=== PATIENT | female | born 1950 | race African-American/Black ===

== ENCOUNTER 2019-07-26 12:05 | Emergency (ER) | payer MEDICARE, OTHER ==
[~2019-07-26] VITALS: Ht 160 cm; Wt 90.0 kg
--- OUTSIDE RECORDS SUMMARY | 2019-07-26 12:07 | XMS REPORT | Summary of Care ---
Author Author LINA Rivas, EMILY Organization Unknown Address Unknown Phone Unavailable Care Team Providers Care [employer] Baseball Player Name Role Phone EMILY MILLS M.D. Unavailable Unavailable KEIRY SANTIAGO MD Unavailable Unavailable Unavailable Unavailable Functional Status Name Dates Details Functional status health issues are not documented Status: Name Dates Details Cognitive status health issues are not documented Status: Problems Name Dates Details Constipation (564.00, K59.00) Status: Active Nausea (787.02, R11.0) Status: Active Stress (V62.89, F43.9) Status: Active Medications Name Dates Details Tresiba SOLN Active Lantus 100 UNIT/ML Subcutaneous Solution INJECT 86 UNIT * Refills: 0 * Start : 01-Jun-2019 Active 10 ML Vial Probiotic Daily CAPS * Refills: 0 Active Horizant 300 MG Oral Tablet Extended Release TAKE 1 TABLET TWICE DAILY * Refills: 0 * Start : 01-Jun-2019 Active Linzess 290 MCG Oral Capsule TAKE 1 CAPSULE DAILY * Quantity: 90 Refills: 1 EMILY MILLS M.D. * Start : 01-Jun-2019 Active Allergies and Adverse Reactions Name Dates Details Codeine Derivatives (Allergy) Status: Active morphine (Allergy) Status: Active Procedures Procedure Dates Details [QLH] TSH, 3RD GENERATION W/REFLEX TO FT4 Date: 01-Jun-2019 [QLH] HEMOGLOBIN A1c Date: 01-Jun-2019 [H] Iron, TIBC \T\ Ferritin Date: 01-Jun-2019 [QLH] VITAMIN B12 Date: 01-Jun-2019 [QLH] VITAMIN D, 1,25 DIHYDROXY LC/MS/MS Date: 01-Jun-2019 [QLH] CBC (INCLUDES DIFF/PLT) Date: 01-Jun-2019 [QLH] CMP W/EGFR Date: 01-Jun-2019 Immunization Name Dates Details Immunizations not documented Social History Name Dates Details Unknown if ever smoked Vital Signs Date Test Result Details 01-Jun-20199:22 BP Systolic 181 mm[Hg] Status: Comments: Location: RUE; Position: Sitting BP Diastolic 51 mm[Hg] Status: Comments: Location: RUE; Position: Sitting Height 63 in Status: Body Mass Index Calculated 34.81 kg/m2 Status: Body Surface Area Calculated 1.92 m2 Status: Weight 196.5 lb Status: Temperature 97.8 f Status: Comments: Method: Oral Heart Rate 75 /min Status: Comments: Location: R Brachial Artery; Quality: Normal Results Date Description Value Details Results not documented Plan of Care Name Dates Details Planned Observations Planned Goals not documented Planned Encounters Psychology Referral Appointment; MORENA SARAVIA, PHD On: 16-Jul-2019 10:30 Interventions Provided Medication Changes* Linzess 290 MCG Oral Capsule - Start Labs/Procedures/Imaging* [H] Iron, TIBC \T\ Ferritin; To Be Done: 01 Jun 2019 * [QLH] CBC (INCLUDES DIFF/PLT); To Be Done: 01 Jun 2019 * [QLH] CMP W/EGFR; To Be Done: 01 Jun 2019 * [QL[facility]] HEMOGLOBIN A1c; To Be Done: 01 Jun 2019 * [QLH] TSH, 3RD GENERATION W/REFLEX TO FT4; To Be Done: 01 Jun 2019 * [QLH] VITAMIN B12; To Be Done: 01 Jun 2019 * [QLH] VITAMIN D, 1,25 DIHYDROXY LC/MS/MS; To Be Done: 01 Jun 2019 Plan* Plan 1. Chronic constipation * - contributing to her gas/bloat and nausea * - start Linzess 290 mcg po q daily * - exercise as tolerated, 20 min brisk walking per day recommended * - adequate hydration -- continue (states to drink at least 8 large glasses of water per day) * 2. Gastroparesis * - causing nausea, gas/bloat * - small frequent meals, low fat, every 2-3 hours * - gastroparesis handout given * - diabetes control essential * - hx of multiple surgeries also contributing to gastroparesis * - labs today including a1c, tsh, cbc, cmp, iron profile, vit D * - stressors contributing to symptoms, referral to psychology * - she may be a candidate for bariatric surgery given long hx of symptomatic gastroparesis, obesity, and complications related to obesity/DM -- I will consider discussing this with her at future visits * 3. Obtain outside Gi records, last colonoscopy? She believes she is up to date on colorectal cancer screening * 4. Reason for pancras surgery unclear -- obtain outside records * 5. rtc in 6-8 weeks * 6. GERD - continue dexilant daily Instructions Name Dates Details Instructions not documented Encounters Appointment; EMILY MILLS M.D. Encounter Diagnosis: Problem not documented On: 01-Jun-2019 9:20
--- OUTSIDE RECORDS SUMMARY | 2019-07-26 12:07 | XMS REPORT ---
Author [facility] Address Unknown Phone Unavailable Care Team Providers Care Extractor Machine Operator Name Role Phone JJ MENDEZ Unavailable Unavailable Problems This patient has no known problems. Allergies, Adverse Reactions, Alerts This patient has no known allergies or adverse reactions. Medications This patient has no known medications. Results Test Description Test Time Test Comments Text Results Atomic Results Result Comments SCR MAMM BILATERAL CAD DIGITAL 2018-08-02 11:52:05 - SCR MAMM BILATERAL CAD DIGITALBILATERAL DIGITAL SCREENING MAMMOGRAM WITH CAD: 08/02/2018CLINICAL: Asymptomatic. Current mammographic images were evaluated by either a [employer] M- Vu or a [employer] ImageChecker CAD (computer aided detection system). Comparison is made to exams dated 05/04/2017 mammogram, 11/26/2014 mammogram, and 01/29/2011 mammogram - [facility]. The tissue of both breasts is predominantly fatty. Status post bilateral reduction mammoplasty with postoperative changes. No suspicious mass, architectural distortion, malignant type calcification, or lymph node abnormality detected. Breast architecture is stable compared to prior exams.IMPRESSION: BENIGNThere is no mammographic evidence of malignancy. Resume annual screening mammography in one year. Noe Hooks M.D. ss/:08/02/2018 11:52:05 Locker Plant Attendant: Vivian WILLIAM, Ma[facility]-FWletter sent: BIRADS 1-2 Normal Mammogram BI-RADS: 2 Benign POCT-GLUCOSE METER 2018-03-09 16:33:00 POC-GLUCOSE METER (Viveve) (test imzl=7401) 136 mg/dL 70-110 TESTED AT [address] [address] POCT-GLUCOSE [id number] 11:22:00* Test Item Value Reference Range Comments POC-GLUCOSE METER (BETracelytics) (test yoix=6832) 349 mg/dL 70-110 TESTED AT [address] [place] [address] (MANUAL DIFFERENTIAL)2018-03-09 06:37:00* Test Item Value Reference Range Comments NEUTROPHILS - REL (DIFF) (BEAKER) (test laoz=5966) 58 % LYMPHOCYTES - REL (DIFF) (BEAKER) (test mjiz=7564) 17 % MONOCYTES - REL (DIFF) (BEAKER) (test fahw=7956) 6 % EOSINOPHILS - REL (DIFF) (BEAKER) (test zmiq=7680) 18 % BASOPHILS - REL (DIFF) (BEAKER) (test tzrm=5062) 1 % NEUTROPHILS - ABS (DIFF) (BEAKER) (test fehp=6077) 4.41 K/ L 1.80-8.00 LYMPHOCYTES - ABS (DIFF) (BEAKER) (test sbbd=4772) 1.29 K/ L 1.48-4.50 MONOCYTES - ABS (DIFF) (BEAKER) (test thrm=3828) 0.46 K/ L 0.00-1.30 EOSINOPHILS - ABS (DIFF) (BEAKER) (test llyb=7591) 1.37 K/ L 0.00-0.50 BASOPHILS - ABS (DIFF) (BEAKER) (test nzbo=2729) 0.08 K/ L 0.00-0.20 TOTAL COUNTED (BEAKER) (test etwx=0799) 100 WBC MORPHOLOGY (BEAKER) (test jpvp=646) Normal PLT MORPHOLOGY (BEAKER) (test xlbm=284) Normal RBC MORPHOLOGY (BEAKER) (test pfxz=264) Normal BASIC METABOLIC [id number] 05:54:00* Test Item Value Reference Range Comments SODIUM (BEAKER) (test ikkf=833) 138 meq/L 135-148 POTASSIUM (BEAKER) (test qzpq=893) 3.7 meq/L 3.6-5.5 CHLORIDE (BEAKER) (test xtnr=168) 106 meq/L 98-106 CO2 (BEAKER) (test qwgg=393) 24 meq/L 20-29 BLOOD UREA NITROGEN (BEAKER) (test fqpc=502) 9 mg/dL 10-26 CREATININE (BEAKER) (test qjjv=174) 1.20 mg/dL 0.50-1.20 GLUCOSE RANDOM (BEAKER) (test ldlo=849) 165 mg/dL 70-110 CALCIUM (BEAKER) (test dlpg=870) 9.8 mg/dL 8.5-10.5 EGFR (BEAKER) (test rpmv=3848) 54 mL/min/1.73 sq m ESTIMATED GFR IS NOT ACCURATE CREATININE CLEARANCE IN PREDICTING GLOMERULAR FILTRATION RATE. ESTIMATED GFR IS NOT APPLICABLE FOR DIALYSIS PATIENTS. POCT-GLUCOSE [id number] 05:44:00* Test Item Value Reference Range Comments POC-GLUCOSE METER (BEAKER) (test adpt=7165) 163 mg/dL 70-110 TESTED AT [address] [address] CBC W/PLT COUNT & AUTO [id number] 05:35:00* Test Item Value Reference Range Comments WHITE BLOOD CELL COUNT (BEAKER) (test tfqw=134) 7.6 K/ L 4.0-10.0 RED BLOOD CELL COUNT (BEAKER) (test kvae=840) 3.63 M/ L 4.00-5.00 HEMOGLOBIN (BEAKER) (test hret=103) 11.2 GM/DL 12.0-15.0 HEMATOCRIT (BEAKER) (test grkq=193) 33.5 % 36.0-45.0 MEAN CORPUSCULAR VOLUME (BEAKER) (test xrha=833) 92.2 fL 82.0-99.0 MEAN CORPUSCULAR HEMOGLOBIN (BEAKER) (test cgsk=442) 30.9 pg 27.0-33.0 MEAN CORPUSCULAR HEMOGLOBIN CONC (BEAKER) (test ibgs=140) 33.5 GM/DL 32.0-36.0 RED CELL DISTRIBUTION WIDTH (BEAKER) (test reui=554) 14.6 % 10.3-14.2 PLATELET COUNT (BEAKER) (test fxma=753) 420 K/CU MM 150-430 MEAN PLATELET VOLUME (BEAKER) (test jnul=791) 8.2 fL 6.5-10.5 NUCLEATED RED BLOOD CELLS (BEAKER) (test qtyc=614) 2 /100 WBC 0-0 POCT-GLUCOSE [id number] 20:31:00* Test Item Value Reference Range Comments POC-GLUCOSE METER (BEAKER) (test kqxq=3947) 114 mg/dL 70-110 TESTED AT [address] [address] POCT-GLUCOSE [id number] 17:08:00* Test Item Value Reference Range Comments POC-GLUCOSE METER (BEAKER) (test udsr=3611) 209 mg/dL 70-110 TESTED AT [facility] [address] [facility] [address] POCT-GLUCOSE [id number] 12:06:00* Test Item Value Reference Range Comments POC-GLUCOSE METER (BEAKER) (test gqsw=3971) 291 mg/dL 70-110 TESTED AT [facility] [address] [facility] [address] POCT-GLUCOSE [id number] 06:27:00* Test Item Value Reference Range Comments POC-GLUCOSE METER (BEAKER) (test vpbx=8033) 190 mg/dL 70-110 TESTED AT [address] [address] COMPREHENSIVE METABOLIC [id number] 06:22:00* Test Item Value Reference Range Comments TOTAL PROTEIN (BEAKER) (test tkjf=198) 6.9 gm/dL 6.0-8.5 ALBUMIN (BEAKER) (test gmpi=6494) 3.2 g/dL 3.5-5.0 ALKALINE PHOSPHATASE (BEAKER) (test fvst=342) 272 U/L 30-115 BILIRUBIN TOTAL (BEAKER) (test rxlu=812) 1.3 mg/dL 0.1-1.2 SODIUM (BEAKER) (test wnfo=856) 140 meq/L 135-148 POTASSIUM (BEAKER) (test rutv=245) 3.8 meq/L 3.6-5.5 CHLORIDE (BEAKER) (test izmo=393) 106 meq/L 98-106 CO2 (BEAKER) (test lvkv=527) 27 meq/L 20-29 BLOOD UREA NITROGEN (BEAKER) (test mpdu=554) 13 mg/dL 10-26 CREATININE (BEAKER) (test omtv=578) 1.26 mg/dL 0.50-1.20 GLUCOSE RANDOM (BEAKER) (test ktpu=749) 174 mg/dL 70-110 CALCIUM (BEAKER) (test rggf=332) 9.6 mg/dL 8.5-10.5 AST (SGOT) (BEAKER) (test uopm=661) 76 U/L 5-40 ALT (SGPT) (BEAKER) (test djzv=828) 108 U/L 5-50 EGFR (NIEVES) (test hpcm=3933) 51 mL/min/1.73 sq m ESTIMATED GFR IS NOT ACCURATE CREATININE CLEARANCE IN PREDICTING GLOMERULAR FILTRATION RATE. ESTIMATED GFR IS NOT APPLICABLE FOR DIALYSIS PATIENTS. POCT-GLUCOSE [id number] 21:07:00* Test Item Value Reference Range Comments POC-GLUCOSE METER (NIEVES) (test qwhg=9776) 180 mg/dL 70-110 TESTED AT [facility] [address] [place] [address], BRAIN, WITHOUT [id number] 20:59:00FINAL REPORT CT head without contrast INDICATION: Decreased alertness. TECHNIQUE: Axial noncontrast CT images through the head were obtained. This exam was performed according to our departmental dose optimization program which includes automated exposure control, adjustment of the mA and/or kV according to patient size and/or use of iterative reconstruction technique. COMPARISON: MRI brain 07/26/2012, CT head 07/25/2012 FINDINGS:There is no parenchymal hematoma, extra- axial collection, or mass effect. Microvascular ischemic changes are chronic appearing. Please note that CT is insensitive for early or small infarcts. Generalized volume loss and vascular calcifications are noted. There is no hydrocephalus or midline shift. There is mild chronic sinus mucosal thickening with well aerated mastoid air cells. The globes remain proptotic with a chronic right lamina papyracea fracture. The calvarium is otherwise intact. IMPRESSION: No acute intracranial hemorrhage or mass effect. Chronic appearing microvascular and involutional changes. If there is persistent concern for acute abnormality, MRI is advised. Signed: Sirisha Jones MDReport Verified Date/Time: 0 03/07/2018 20:59:42 Reading Location: [facility] Radiology Reading Room Elec tronically signed by: SIRISHA JONES M.D. on 03/07/2018 08:59 PM RAD, KNEE, 1 OR 2 VIEWS, [id number] 20:17:002 views.Reason for exam:->Pain.Pt reports fall.FINAL REPORT RAD, KNEE, 1 OR 2 VIEWS, LEFT CLINICAL INDICATION: Pain.Pt reports fall. COMPARISON: None FINDINGS: Frontal, oblique and lateral views of the left knee. There is no fracture or malalignment. Mild degenerative changes are present. The femorotibial and femoropatellar joint spaces are intact. No joint fluid is demonstrated. Surrounding soft tissues are unremarkable. IMPRESSION: No acute traumatic osseous abnormality of the left knee. Signed: JR Urrutia Robert MDReport Verified Date/Time: 03/07/2018 20:17:12 Reading Location: [address] Reading Room -GLUCOSE [id number] 17:43:00* Test Item Value Reference Range Comments POC-GLUCOSE METER (BEAKER) (test txjs=8292) 196 mg/dL 70-110 TESTED AT [address] [address] U/S, ABDOMINAL, [id number] 15:36:00Reason for exam:->acute renal failure and elevated LFTFINAL REPORT Comparison: None Discussion: Sonographic evaluation of the abdomen was performed. Liver: Measures 13 cm in length at the right midclavicular. It demonstrates mild echogenicity without evidence of focal lesions. Gallbladder: Status post cholecystectomy. Biliary tree: Common duct measures 4mm. Main portal vein diameter is 9 mm. Spleen: 8.4 cm in length, normal echotexture . No mass. Kidneys: The right kidney measures 11.4cm and the left kidney measures 11.3cm. There is a right renal cyst measuring 3.5 x 2.4 x 2.6 cm. Otherwise both kidneys appear unremarkable. Pancreas: Visualized portions demonstrate no abnormalities. IVC/Aorta: Segments partially seen demonstrate no obvious abnormalities. Ascites: No fluid . IMPRESSION: Increased liver echogenicity suggestive of fatty infiltration. Right renal cyst. Status post cholecystectomy. Signed: Alejandro Collado MDReport Verified Date/Time: 03/07/2018 15:36:19 Reading Location: [facility] [address] Radiology Reading Room -GLUCOSE [id number] 13:16:00* Test Item Value Reference Range Comments POC-GLUCOSE METER (BEAKER) (test szde=3754) 154 mg/dL 70-110 TESTED AT [address] [facility] [address] HEPATITIS PANEL, [id number] 11:13:00* Test Item Value Reference Range Comments HEPATITIS A IGM ANTIBODY (BEAKER) (test viws=269) Nonreactive Nonreactive HEPATITIS B CORE IGM ANTIBODY (BEAKER) (test nclt=789) Nonreactive Nonreactive HEPATITIS C ANTIBODY (BEAKER) (test wgte=045) Nonreactive Nonreactive HEPATITIS B SURFACE ANTIGEN (2) (BEAKER) (test qijj=6301) Nonreactive Nonreactive COMPREHENSIVE METABOLIC [id number] 06:38:00* Test Item Value Reference Range Comments TOTAL PROTEIN (BEAKER) (test dfnv=831) 7.0 gm/dL 6.0-8.5 ALBUMIN (BEAKER) (test wmpe=0839) 3.2 g/dL 3.5-5.0 ALKALINE PHOSPHATASE (BEAKER) (test ysfl=440) 219 U/L 30-115 BILIRUBIN TOTAL (BEAKER) (test orav=525) 1.3 mg/dL 0.1-1.2 SODIUM (BEAKER) (test pber=361) 140 meq/L 135-148 POTASSIUM (BEAKER) (test pzih=061) 3.8 meq/L 3.6-5.5 CHLORIDE (BEAKER) (test lyvk=604) 107 meq/L 98-106 CO2 (BEAKER) (test bhfr=730) 26 meq/L 20-29 BLOOD UREA NITROGEN (BEAKER) (test kdfl=104) 21 mg/dL 10-26 CREATININE (BEAKER) (test sylm=118) 1.42 mg/dL 0.50-1.20 GLUCOSE RANDOM (BEAKER) (test eqhk=134) 135 mg/dL 70-110 CALCIUM (BEAKER) (test mrpp=834) 9.9 mg/dL 8.5-10.5 AST (SGOT) (BEAKER) (test fxyx=218) 98 U/L 5-40 ALT (SGPT) (BEAKER) (test gzkv=014) 128 U/L 5-50 EGFR (BEAKER) (test mdno=0583) 45 mL/min/1.73 sq m ESTIMATED GFR IS NOT ACCURATE CREATININE CLEARANCE IN PREDICTING GLOMERULAR FILTRATION RATE. ESTIMATED GFR IS NOT APPLICABLE FOR DIALYSIS PATIENTS. CBC W/PLT COUNT & AUTO [id number] 06:12:00* Test Item Value Reference Range Comments WHITE BLOOD CELL COUNT (BEAKER) (test urpo=400) 6.3 K/ L 4.0-10.0 RED BLOOD CELL COUNT (BEAKER) (test rtmp=838) 3.47 M/ L 4.00-5.00 HEMOGLOBIN (BEAKER) (test dhee=062) 10.7 GM/DL 12.0-15.0 HEMATOCRIT (BEAKER) (test qadh=681) 31.8 % 36.0-45.0 MEAN CORPUSCULAR VOLUME (BEAKER) (test ujow=940) 91.6 fL 82.0-99.0 MEAN CORPUSCULAR HEMOGLOBIN (BEAKER) (test gdtr=021) 30.9 pg 27.0-33.0 MEAN CORPUSCULAR HEMOGLOBIN CONC (BEAKER) (test uija=762) 33.7 GM/DL 32.0-36.0 RED CELL DISTRIBUTION WIDTH (BEAKER) (test eqep=560) 14.4 % 10.3-14.2 PLATELET COUNT (BEAKER) (test gygs=536) 470 K/CU MM 150-430 MEAN PLATELET VOLUME (BEAKER) (test cjxj=090) 7.7 fL 6.5-10.5 NUCLEATED RED BLOOD CELLS (BEAKER) (test hwpj=447) 0 /100 WBC 0-0 NEUTROPHILS RELATIVE PERCENT (BEAKER) (test sjdj=128) 56 % LYMPHOCYTES RELATIVE PERCENT (BEAKER) (test xmug=175) 18 % MONOCYTES RELATIVE PERCENT (BEAKER) (test eowz=466) 11 % EOSINOPHILS RELATIVE PERCENT (BEAKER) (test wpim=847) 15 % BASOPHILS RELATIVE PERCENT (BEAKER) (test yzdq=122) 1 % NEUTROPHILS ABSOLUTE COUNT (BEAKER) (test yavg=756) 3.50 K/ L 1.80-8.00 LYMPHOCYTES ABSOLUTE COUNT (BEAKER) (test whei=500) 1.10 K/ L 1.48-4.50 MONOCYTES ABSOLUTE COUNT (BEAKER) (test zpha=767) 0.70 K/ L 0.00-1.30 EOSINOPHILS ABSOLUTE COUNT (BEAKER) (test dsvd=386) 0.90 K/ L 0.00-0.50 BASOPHILS ABSOLUTE COUNT (BEAKER) (test llod=238) 0.00 K/ L 0.00-0.20 POCT-GLUCOSE [id number] 05:16:00* Test Item Value Reference Range Comments POC-GLUCOSE METER (BEAKER) (test ewfl=8319) 129 mg/dL 70-110 TESTED AT [facility] [address] [place] [address] URINALYSIS W/ REFLEX URINE [id number] 22:12:00* Test Item Value Reference Range Comments COLOR (BEAKER) (test lqwc=253) Yellow CLARITY (BEAKER) (test ogvs=607) Clear SPECIFIC GRAVITY UA (BEAKER) (test sqbe=861) <= 1.001-1.035 PH UA (BEAKER) (test hbms=496) 6.0 5.0-8.0 PROTEIN UA (BEAKER) (test wfbf=327) Negative Negative GLUCOSE UA (BEAKER) (test flmw=668) Negative Negative KETONES UA (BEAKER) (test smmw=990) Negative Negative BILIRUBIN UA (BEAKER) (test psjn=518) Negative Negative BLOOD UA (BEAKER) (test igwe=466) Negative Negative NITRITE UA (BEAKER) (test rrck=268) Negative Negative LEUKOCYTE ESTERASE UA (BEAKER) (test bsvz=697) Negative Negative UROBILINOGEN UA (BEAKER) (test kwdj=841) 0.2 mg/dL 0.2-1.0 BACTERIA (BEAKER) (test dycc=465) Few RBC UA-MANUAL (BEAKER) (test whtb=0749) <5 /HPF WBC UA-MANUAL (BEAKER) (test goeq=7020) 5-10 /HPF SQUAMOUS EPITHELIAL MANUAL (BEAKER) (test kwat=4177) 5-10 /HPF SOURCE(BEAKER) (test fcgu=6008) POCT-GLUCOSE [id number] 20:30:00* Test Item Value Reference Range Comments POC-GLUCOSE METER (BEAKER) (test ibav=4222) 224 mg/dL 70-110 TESTED AT [facility] [address] [place] [address] POCT-GLUCOSE [id number] 18:09:00* Test Item Value Reference Range Comments POC-GLUCOSE METER (BEAKER) (test xmcw=4108) 224 mg/dL 70-110 TESTED AT [facility] [address] [place] [address] POCT-GLUCOSE [id number] 12:11:00* Test Item Value Reference Range Comments POC-GLUCOSE METER (BEAKER) (test hgqp=8923) 254 mg/dL 70-110 TESTED AT [facility] [address] [facility] [address] POCT-GLUCOSE [id number] 06:56:00* Test Item Value Reference Range Comments POC-GLUCOSE METER (BEAKER) (test krsm=8080) 250 mg/dL 70-110 TESTED AT [facility] [address] [facility] [address] TSH/FREE T4 IF [id number] 06:32:00* Test Item Value Reference Range Comments THYROID STIMULATING HORMONE (BEAKER) (test nmpa=038) 0.67 uIU/mL 0.35-5.50 COMPREHENSIVE METABOLIC [id number] 06:26:00* Test Item Value Reference Range Comments TOTAL PROTEIN (BEAKER) (test rspy=097) 6.5 gm/dL 6.0-8.5 ALBUMIN (BEAKER) (test wwlc=1738) 3.2 g/dL 3.5-5.0 ALKALINE PHOSPHATASE (BEAKER) (test kxfy=244) 198 U/L 30-115 BILIRUBIN TOTAL (BEAKER) (test zrpd=949) 0.7 mg/dL 0.1-1.2 SODIUM (BEAKER) (test xnhz=582) 135 meq/L 135-148 POTASSIUM (BEAKER) (test eaip=747) 3.9 meq/L 3.6-5.5 CHLORIDE (BEAKER) (test bjap=945) 102 meq/L 98-106 CO2 (BEAKER) (test sxpm=202) 24 meq/L 20-29 BLOOD UREA NITROGEN (BEAKER) (test tlmh=649) 24 mg/dL 10-26 CREATININE (BEAKER) (test rpyv=276) 1.89 mg/dL 0.50-1.20 GLUCOSE RANDOM (BEAKER) (test belg=711) 217 mg/dL 70-110 CALCIUM (BEAKER) (test fkfz=627) 9.4 mg/dL 8.5-10.5 AST (SGOT) (BEAKER) (test ihrk=481) 152 U/L 5-40 ALT (SGPT) (BEAKER) (test racn=987) 156 U/L 5-50 EGFR (BEAKER) (test wrjy=6037) 32 mL/min/1.73 sq m ESTIMATED GFR IS NOT ACCURATE CREATININE CLEARANCE IN PREDICTING GLOMERULAR FILTRATION RATE. ESTIMATED GFR IS NOT APPLICABLE FOR DIALYSIS PATIENTS. (MANUAL DIFFERENTIAL)2018-03-06 06:12:00* Test Item Value Reference Range Comments NEUTROPHILS - REL (DIFF) (BEAKER) (test qcom=9898) 56 % LYMPHOCYTES - REL (DIFF) (BEAKER) (test eaao=2504) 23 % MONOCYTES - REL (DIFF) (BEAKER) (test zocg=6439) 10 % EOSINOPHILS - REL (DIFF) (BEAKER) (test xrpl=4440) 11 % NEUTROPHILS - ABS (DIFF) (BEAKER) (test iomh=0307) 3.08 K/ L 1.80-8.00 LYMPHOCYTES - ABS (DIFF) (BEAKER) (test czfb=1526) 1.27 K/ L 1.48-4.50 MONOCYTES - ABS (DIFF) (BEAKER) (test oqpe=2872) 0.55 K/ L 0.00-1.30 EOSINOPHILS - ABS (DIFF) (BEAKER) (test rujr=4070) 0.61 K/ L 0.00-0.50 TOTAL COUNTED (BEAKER) (test lint=0075) 100 WBC MORPHOLOGY (BEAKER) (test cune=226) Normal PLT MORPHOLOGY (BEAKER) (test iavh=086) Normal RBC MORPHOLOGY (BEAKER) (test hwyw=089) Normal LIPID [id number] 06:09:00* Test Item Value Reference Range Comments TRIGLYCERIDES (BEAKER) (test bfvz=921) 109 mg/dL CHOLESTEROL (BEAKER) (test pvxq=820) 182 mg/dL HDL CHOLESTEROL (BEAKER) (test kzqy=096) 45 mg/dL LDL CHOLESTEROL CALCULATED (BEAKER) (test jyod=871) 115 mg/dL Triglyceride Reference Range: Low Risk <150 Borderline 150-199 High Risk 200-499 Very High Risk >=500Cholesterol Reference Range: Low Risk <200 Borderline 200-239 High Risk >240HDL Cholesterol Reference Range: Low Risk >=60 High Risk <40LDL Cholesterol Reference Range: Optimal <100 Near Optimal 100-129 Borderline 130-159 High 160-189 Very High >=190 HEMOGLOBIN [id number] 05:54:00* Test Item Value Reference Range Comments HEMOGLOBIN A1C (BEAKER) (test ovza=602) 9.5 % 4.3-6.1 CBC W/PLT COUNT & AUTO [id number] 05:44:00* Test Item Value Reference Range Comments WHITE BLOOD CELL COUNT (BEAKER) (test fgxf=195) 5.5 K/ L 4.0-10.0 RED BLOOD CELL COUNT (BEAKER) (test pauv=221) 3.30 M/ L 4.00-5.00 HEMOGLOBIN (BEAKER) (test rdcm=520) 10.3 GM/DL 12.0-15.0 HEMATOCRIT (BEAKER) (test nfsx=053) 30.1 % 36.0-45.0 MEAN CORPUSCULAR VOLUME (BEAKER) (test zorb=154) 91.2 fL 82.0-99.0 MEAN CORPUSCULAR HEMOGLOBIN (BEAKER) (test elcc=957) 31.3 pg 27.0-33.0 MEAN CORPUSCULAR HEMOGLOBIN CONC (BEAKER) (test nobn=118) 34.3 GM/DL 32.0-36.0 RED CELL DISTRIBUTION WIDTH (BEAKER) (test zwys=377) 14.4 % 10.3-14.2 PLATELET COUNT (BEAKER) (test mfej=741) 451 K/CU MM 150-430 MEAN PLATELET VOLUME (BEAKER) (test lpdm=907) 7.8 fL 6.5-10.5 NUCLEATED RED BLOOD CELLS (BEAKER) (test wkle=689) 2 /100 WBC 0-0 POCT-GLUCOSE [id number] 21:11:00* Test Item Value Reference Range Comments POC-GLUCOSE METER (BEAKER) (test ofdk=6875) 374 mg/dL 70-110 Notified EDU HUFF/TESTED AT [address] [address] POCT-GLUCOSE [id number] 17:43:00* Test Item Value Reference Range Comments POC-GLUCOSE METER (BEAKER) (test oivr=4378) 272 mg/dL 70-110 TESTED AT [address] [address] POCT-GLUCOSE [id number] 12:33:00* Test Item Value Reference Range Comments POC-GLUCOSE METER (BEAKER) (test mlao=2221) 262 mg/dL 70-110 TESTED AT [place] [address] [facility] [address] POCT-GLUCOSE [id number] 06:04:00* Test Item Value Reference Range Comments POC-GLUCOSE METER (BEAKER) (test fbzw=3108) 254 mg/dL 70-110 TESTED AT [place] [address] [facility] [address] POCT-GLUCOSE [id number] 20:40:00* Test Item Value Reference Range Comments POC-GLUCOSE METER (BEAKER) (test jcuu=8691) 347 mg/dL 70-110 Notified EDU HUFF/TESTED AT [address] [address] POCT-GLUCOSE [id number] 16:39:00* Test Item Value Reference Range Comments POC-GLUCOSE METER (BEAKER) (test wdje=9201) 279 mg/dL 70-110 TESTED AT [address] [address] POCT-GLUCOSE [id number] 13:47:00* Test Item Value Reference Range Comments POC-GLUCOSE METER (BEAKER) (test fmfa=9851) 259 mg/dL 70-110 TESTED AT [address] [address] POCT-GLUCOSE [id number] 06:22:00* Test Item Value Reference Range Comments POC-GLUCOSE METER (BEAKER) (test gqwp=4817) 239 mg/dL 70-110 TESTED AT [address] [address] CBC W/PLT COUNT & AUTO [id number] 05:50:00* Test Item Value Reference Range Comments WHITE BLOOD CELL COUNT (BEAKER) (test drql=314) 6.7 K/ L 4.0-10.0 RED BLOOD CELL COUNT (BEAKER) (test iizz=986) 3.72 M/ L 4.00-5.00 HEMOGLOBIN (BEAKER) (test bwpt=324) 11.3 GM/DL 12.0-15.0 HEMATOCRIT (BEAKER) (test glmo=105) 33.9 % 36.0-45.0 MEAN CORPUSCULAR VOLUME (BEAKER) (test yteb=320) 91.3 fL 82.0-99.0 MEAN CORPUSCULAR HEMOGLOBIN (BEAKER) (test riof=183) 30.5 pg 27.0-33.0 MEAN CORPUSCULAR HEMOGLOBIN CONC (BEAKER) (test pijb=671) 33.4 GM/DL 32.0-36.0 RED CELL DISTRIBUTION WIDTH (BEAKER) (test deni=966) 13.6 % 10.3-14.2 PLATELET COUNT (BEAKER) (test upul=059) 528 K/CU MM 150-430 MEAN PLATELET VOLUME (BEAKER) (test gmav=420) 7.8 fL 6.5-10.5 NUCLEATED RED BLOOD CELLS (BEAKER) (test ydwo=902) 0 /100 WBC 0-0 (MANUAL DIFFERENTIAL)2018-03-04 05:50:00* Test Item Value Reference Range Comments NEUTROPHILS - REL (DIFF) (BEAKER) (test ikcz=1634) 46 % LYMPHOCYTES - REL (DIFF) (BEAKER) (test hktm=5953) 45 % MONOCYTES - REL (DIFF) (BEAKER) (test kpwt=4546) 5 % EOSINOPHILS - REL (DIFF) (BEAKER) (test fwhm=7496) 4 % NEUTROPHILS - ABS (DIFF) (BEAKER) (test hipq=3762) 3.08 K/ L 1.80-8.00 LYMPHOCYTES - ABS (DIFF) (BEAKER) (test kayr=6729) 3.02 K/ L 1.48-4.50 MONOCYTES - ABS (DIFF) (BEAKER) (test cbcu=6036) 0.34 K/ L 0.00-1.30 EOSINOPHILS - ABS (DIFF) (BEAKER) (test rffo=1828) 0.27 K/ L 0.00-0.50 TOTAL COUNTED (BEAKER) (test adyo=0490) 100 WBC MORPHOLOGY (BEAKER) (test rper=200) Normal PLT MORPHOLOGY (BEAKER) (test dxrd=480) Normal RBC MORPHOLOGY (BEAKER) (test rwbq=301) Normal HEMOGLOBIN [id number] 05:22:00* Test Item Value Reference Range Comments HEMOGLOBIN A1C (BEAKER) (test ezfw=639) 9.7 % 4.3-6.1 BASIC METABOLIC [id number] 05:19:00* Test Item Value Reference Range Comments SODIUM (BEAKER) (test skla=187) 139 meq/L 135-148 POTASSIUM (BEAKER) (test shxb=923) 3.5 meq/L 3.6-5.5 CHLORIDE (BEAKER) (test dxkz=232) 105 meq/L 98-106 CO2 (BEAKER) (test swuj=527) 27 meq/L 20-29 BLOOD UREA NITROGEN (BEAKER) (test wcnq=075) 10 mg/dL 10-26 CREATININE (BEAKER) (test mviz=919) 0.99 mg/dL 0.50-1.20 GLUCOSE RANDOM (BEAKER) (test zere=650) 158 mg/dL 70-110 CALCIUM (BEAKER) (test dcrh=690) 9.7 mg/dL 8.5-10.5 EGFR (BEAKER) (test kmqj=5579) 68 mL/min/1.73 sq m ESTIMATED GFR IS NOT ACCURATE CREATININE CLEARANCE IN PREDICTING GLOMERULAR FILTRATION RATE. ESTIMATED GFR IS NOT APPLICABLE FOR DIALYSIS PATIENTS. POCT-GLUCOSE [id number] 21:11:00* Test Item Value Reference Range Comments POC-GLUCOSE METER (BEAKER) (test euem=1187) 290 mg/dL 70-110 TESTED AT [address] [address] [address], CHEST WITH IV CONTRAST- PE TEST [id number] 15:16:00Reason for exam:-> CHEST PAINWhat is the patient's sedation requirement?->No SedationFINAL REPORT CT of the chest, with contrast. History: Shortness of breath. Comparison: Chest radiograph earlier same day. Technique: Multidetector CT scanning of the chest was performed from the level of the tho racic inlet to the upper abdomen after intravenous administration of non-ionic c ontrast. Thin collimation scanning through the pulmonary arteries was performed during the early phase. Coronal MIP reformations were obtained. Discussion: T he main pulmonary pulmonary artery is normal in size. The pulmonary artery branc hes are well opacified without evidence of filling defect or vessel cutoff. The atria, ventricles, and aorta are normal in appearance. There is no evidence of a xillary or mediastinal adenopathy. There is no evidence of consolidation, mass, or pleural effusion. The soft tissues and osseous structures are intact. The thyroid gland is mildly heterogenous. In the visualized upper abdomen, a benign appearing right renal cyst is noted. Cholecystectomy noted. IMPRESSION:No eviden ce of pulmonary embolism or other acute abnormality. Signed: Avery Nevarez MDR eport Verified Date/Time: 03/03/2018 15:16:10 Reading Location: [address] Reading Room C METABOLIC [id number] 14:33:00* Test Item Value Reference Range Comments SODIUM (BEAKER) (test agks=813) 139 meq/L 135-148 POTASSIUM (BEAKER) (test zmre=483) 3.9 meq/L 3.6-5.5 CHLORIDE (BEAKER) (test kocq=776) 104 meq/L 98-106 CO2 (BEAKER) (test hiah=265) 26 meq/L 20-29 BLOOD UREA NITROGEN (BEAKER) (test usrf=054) 12 mg/dL 10-26 CREATININE (BEAKER) (test acqy=609) 1.15 mg/dL 0.50-1.20 GLUCOSE RANDOM (BEAKER) (test fxlh=659) 186 mg/dL 70-110 CALCIUM (BEAKER) (test wrbv=972) 10.1 mg/dL 8.5-10.5 EGFR (BEAKER) (test pizi=6558) mL/min/1.73 sq m INSUFFICIENT CLINICAL DATA TO CALCULATE ESTIMATED GFR. TROPONIN [id number] 14:25:00* Test Item Value Reference Range Comments TROPONIN I (BEAKER) (test grsa=165) < ng/mL 0.00-0.15 Troponin I (TnI) levels must be interpreted in the context of the presenting sym ptoms and the clinical findings. Elevated TnI levels indicate myocardial damage, but are not specific for ischemic heart disease. Elevated TnI levels are seen in patients with other cardiac conditions (including myocarditis and congestive h eart failure), and slight TnI elevations occur in patients with other conditions , including sepsis, renal failure, acidosis, acute neurological disease, and per sistent tachyarrhythmia.CREATINE KINASE (CK), TOTAL AND [id number] 14:24:00* Test Item Value Reference Range Comments CREATINE KINASE TOTAL (BEAKER) (test yrul=166) 42 U/L 25-235 CREATINE KINASE-MB (BEAKER) (test ysed=752) 0.7 ng/mL 0.0-4.9 CREATINE KINASE-MB INDEX (BEAKER) (test ebpx=417) 1.7 % CK-MB Reference Range:<5 Normal5-10 Borderline>10 [id number] 14:11:00* Test Item Value Reference Range Comments D-DIMER QUANTITATIVE (BEAKER) (test pwtz=718) 1.06 mg/L <0.50 REGARDING D-DIMER RESULTS: The 98% NPV (Negative Predictive Value) for DVT/PE ex clusion is 0.50 mg/L FEU as suggested by the structural steel ironworker and as approved by the FDA.Final Information (Auto Output)RAD, CHEST, 2 [id number] 14:10:00Reason for exam:->CHEST PAINFINAL REPORT TECHNIQUE: Frontal and lateral chest radiographs dated 03/03/2018. CLINICAL HISTORY: Chest pain COMPARISON STUDY: Chest radiograph dated 07/25/2012 FINDINGS: Lungs are clear. No pleural effusion or pneumothorax. Cardiomediastinal silhouette is normal in size. No pulmonary edema. No bone or soft tissue abnormalities are seen. IMPRESSION: Normal chest radiographs. Signed: Hannah Camachoeport Verified Date/Time: 03/03/2018 14:10:16 Reading Location: [facility] Radiology Reading Room W/PLT COUNT & AUTO [id number] 14:06:00* Test Item Value Reference Range Comments WHITE BLOOD CELL COUNT (BEAKER) (test ejuv=071) 5.7 K/ L 4.0-10.0 RED BLOOD CELL COUNT (BEAKER) (test nhfp=078) 4.02 M/ L 4.00-5.00 HEMOGLOBIN (BEAKER) (test yepl=298) 12.1 GM/DL 12.0-15.0 HEMATOCRIT (BEAKER) (test bhkf=954) 36.7 % 36.0-45.0 MEAN CORPUSCULAR VOLUME (BEAKER) (test iftj=993) 91.3 fL 82.0-99.0 MEAN CORPUSCULAR HEMOGLOBIN (BEAKER) (test ptok=191) 30.0 pg 27.0-33.0 MEAN CORPUSCULAR HEMOGLOBIN CONC (BEAKER) (test zpiw=980) 32.9 GM/DL 32.0-36.0 RED CELL DISTRIBUTION WIDTH (BEAKER) (test wbdf=993) 13.9 % 10.3-14.2 PLATELET COUNT (BEAKER) (test jtgb=232) 578 K/CU MM 150-430 MEAN PLATELET VOLUME (BEAKER) (test duvt=386) 7.9 fL 6.5-10.5 NUCLEATED RED BLOOD CELLS (BEAKER) (test imac=116) 0 /100 WBC 0-0 NEUTROPHILS RELATIVE PERCENT (BEAKER) (test bnij=326) 41 % LYMPHOCYTES RELATIVE PERCENT (BEAKER) (test tsmv=830) 45 % MONOCYTES RELATIVE PERCENT (BEAKER) (test kzrj=021) 8 % EOSINOPHILS RELATIVE PERCENT (BEAKER) (test uthz=684) 4 % BASOPHILS RELATIVE PERCENT (BEAKER) (test uvds=859) 1 % NEUTROPHILS ABSOLUTE COUNT (BEAKER) (test cibc=439) 2.40 K/ L 1.80-8.00 LYMPHOCYTES ABSOLUTE COUNT (BEAKER) (test lzez=303) 2.60 K/ L 1.48-4.50 MONOCYTES ABSOLUTE COUNT (BEAKER) (test gwpo=389) 0.50 K/ L 0.00-1.30 EOSINOPHILS ABSOLUTE COUNT (BEAKER) (test zczl=934) 0.20 K/ L 0.00-0.50 BASOPHILS ABSOLUTE COUNT (BEAKER) (test wrte=305) 0.10 K/ L 0.00-0.20
[2019-07-26] MEDS ORDERED: IBUPROFEN 600 MG TAB PO STA (12:31)
[2019-07-26] MEDS ORDERED: CLONIDINE HCL 0.2 MG TAB PO ONE (12:45)
[2019-07-26] MEDS ORDERED: CLONIDINE HCL 0.1 MG TAB ONE (12:55)
[2019-07-26] MEDS ORDERED: IBUPROFEN 200 MG TAB ONE (12:55)
[2019-07-26] MEDS ORDERED: ACETAMINOPHEN 325 MG TAB PO ONE (13:00)
--- NOTE | 2019-07-26 13:00 | Diagnostic Imaging Report ---
Radiographs of the right hip - 2 views HISTORY: Pain COMPARISON: None available. FINDINGS: Bones: No acute displaced fracture. Osseous alignment is within normal limits. Joints: Scattered degenerative change. No osseous erosion. Soft tissues: The soft tissues appear unremarkable. IMPRESSION: Scattered degenerative change. No osseous erosion Signed by: Dr. Vladimir Cisse M.D. on 07/26/2019 12:56 PM
[2019-07-26 13:55] VITALS: BP 181/87
== END 2019-07-26 13:55 | disposition home or self-care (01) ==
LOC: FSED 12:05
DX: S70.01XA Contusion of right hip, initial encounter (principal); M25.561 Pain in right knee; M25.511 Pain in right shoulder; M25.521 Pain in right elbow; M79.674 Pain in right toe(s); W18.30XA Fall on same level, unspecified, initial encounter; Y92.008 Other place in unspecified non-institutional (private) residence as the place of occurrence of the external cause
CPT/HCPCS: 99283